=== PATIENT | male | born 1985 | race Hispanic/Latino ===

== ENCOUNTER 2016-10-30 12:44 | Emergency (ER) | payer SELFPAY ==
[~2016-10-30] VITALS: Ht 157.5 cm; Wt 2.2 kg
[~2016-10-30 12:44] MED LIST: PROM25TA14 PO
[2016-10-30 12:46] VITALS: BP 136/84; PULSE 88; RESP 16; O2SAT 99
--- NOTE | 2016-10-30 13:18 | ED.REPORT ---
HPI-General Illness Date of Service October 30, 2016 ED Provider: Rajinder Shahid MD Pt is a 30 y.o. male who presents to the ED c/o weakness onset 10 days ago. Pt reports associated SOB and lightheadedness when he stands up quickly. He reports mild nonproductive cough, denies fever, and congestion. He denies a hx of asthma and recent sick contacts. He states that he is overall very healthy and takes no medications. Nursing Notes Stated Complaint: SOB/DIZZY Chief Complaint: General Complaint Nursing Notes Reviewed: Yes Allergies: Coded Allergies: No Known Allergies (Unverified , 10/30/16) Scheduled PRN Promethazine (Promethazine) 25 Mg Tablet 25 MG PO TID PRN PRN Headache General Time Seen by MD: 13:16 Chief Complaint Weakness Hx Obtained From: Patient Arrived By: Walk-in Sudden in Onset?: Yes Onset Occurred: More than a week ago... Symptom Duration: Since onset Severity: Current: No pain currently Recent Healthcare: No recent doctor visit, No recent hospitalization Similar Sx Previous: No Past Medical History Past Medical History None Past Surgical History None Family History Denies family history of depression. Smoking History Former Smoker Social History Alcohol Use: Denies alcohol use Drug Use: Denies drug use Review of Systems Full Review of Systems Constitutional: Reports: Weakness - generalized, Denies: Fever Ears / Nose / Throat: Denies: Nasal congestion Respiratory: Reports: Shortness of breath, Denies: Non-productive cough Neurologic: Reports: Lightheaded Physical Exam Vital Signs Vital Signs Date Time Temp Pulse Resp B/P Pulse Ox O2 Delivery O2 Flow Rate FiO2 10/30/16 14:52 36.8 81 18 132/86 99 Room Air 10/30/16 12:46 37.0 88 16 136/84 99 Room Air Initial VS: Reviewed Abdomen / GI: No distention Extremities: Vascular intact, Neuro intact Skin: Warm, Dry, No cyanosis Neurologic: Alert, Oriented, Nonfocal Psychiatric: Mood/affect normal, Behavior normal, Normal thought content General/Constitutional: Awake, Alert, No acute distress, Well appearing, Well developed, Well hydrated, Well nourished, Not toxic appearing Head / Eyes: Atraumatic, Normocephalic, PERRL, EOMI Conjunctiva / Sclera: Positive: Injected left, Injected right ENT: Atraumatic, Airway patent Mouth: Positive: Mucous membranes dry Respiratory / Chest: Atraumatic, No respiratory distress Wheezing / Retractions: Positive: Wheezing expiratory (Scattered) Interpretation & Diagnostics X-Ray Chest Interpretation Chest Xray Interpretation: IMPRESSION: No acute process. Dictated by: Dana Brooks M.D. on 10/30/2016 at 13:57 Approved by: Dana Brooks M.D. on 10/30/2016 at 13:57 Re-Eval/Medical Decision Med Decision/Clinical Course Pt is a 30 y.o. male who presents to the ED c/o weakness onset 10 days ago. Pt reports associated SOB and lightheadedness when he stands up quickly. He reports mild nonproductive cough, denies fever, and congestion. He denies a hx of asthma and recent sick contacts. He states that he is overall very healthy and takes no medications. Here in the emergency department the patient is afebrile stable vital signs and examination as above. He has mild scattered wheezing present. Chest x-ray was obtained and per my interpretation demonstrated no focal consolidations or pneumothorax. Incidental finding of lung nodule was present and he will follow this up with his primary care physician. EKG was obtained and interpreted by myself as documented above. I opted to trial albuterol inhaler with spacer and patient reported significant symptom improvement. At this time there is no evidence of pneumonia, pneumothorax, patient is nontoxic and stable in appearance with normal vital signs. I feel that he is appropriate for outpatient management. Advised to follow up with primary care physician. Provided with albuterol inhaler with spacer to use as needed. Follow-up and return precautions were reviewed in detail and the patient was discharged in good condition. Source of Hx: Old records Re-Evaluation/Progress Note: Pt rechecked. Discussed imaging results and plan for discharge, pt understands and agrees with plan. Counseled Regarding: Diagnosis, Lab results, Need for follow-up, When/why to return to ED Discharge & Departure Primary Impression: Upper respiratory infection URI type: unspecified URI Qualified Code: J06.9 - Acute upper respiratory infection, unspecified Additional Impressions: Lung nodule Wheezing Disposition: Home Discharge Condition All VS Reviewed: Yes Condition: Improved Additional Instructions: Thank you for seeking care at the emergency room. It is difficult for us to make definitive diagnoses in the ED but we believe that you are restricting an upper respiratory infection and wheezing. Our primary goal today in the ED was to evaluate you for any life-threatening conditions. Your evaluation was reassuring. Please use the albuterol inhaler as directed. You have a small pulmonary nodule. Follow-up about this with your regular doctor. You should follow-up with your primary doctor in the next week. You should return to the ED immediately if you develop worsening symptoms, fevers, vomiting, cough, shortness of breath, chest pain, lightheadedness, weakness or any other concerning signs or symptoms. Thank you for letting us partake in your care today. Referrals: [facility] (PCP) [facility] Attestation Portions of this note were transcribed by Scotty Lara. I, Dr. Shahid personally performed the history, physical exam and medical decision-making; I reviewed and confirmed the accuracy of the information in the transcribed note. Signed by: Suyapa Plaza, 10/30/16 and 1402. copies to: [facility] Rajinder Shahid MD October 30, 2016 13:18 SCOTTY LARA October 30, 2016 13:22
[2016-10-30] MEDS ORDERED: Albuterol HFA 60 Puff 8 Gm Inhaler INHALATION PRN (13:25)
--- NOTE | 2016-10-30 13:58 | DRSVH ---
PROCEDURE: X-RAY CHEST, TWO VIEWS ([id number]) INDICATIONS: cough TECHNIQUE: 2 views of the chest were acquired. COMPARISON: None. FINDINGS: Surgical changes and devices: None. Lungs and pleura: No pleural effusions or pneumothorax. Calcified granuloma within the right lower l adrian. Lungs are otherwise clear. Mediastinum: Mediastinal contours are normal. Heart size is normal. Bones and chest wall: No suspicious bony abnormalities. Soft tissues appear unremarkable. IMPRESSION: No acute process. Dictated by: Dana Brooks M.D. on 10/30/2016 at 13:57 Approved by: Dana Brooks M.D. on 10/30/2016 at 13:57
[2016-10-30] MEDS ORDERED: Albuterol HFA 200 Puff Inhaler (Vent Pts Only) INHALATION PRN (14:05)
[2016-10-30 14:52] VITALS: BP 132/86; PULSE 81; RESP 18; O2SAT 99
== END 2016-10-30 14:57 | disposition home or self-care (01) ==
LOC: SED 12:44
DX: J06.9 Acute upper respiratory infection, unspecified (principal); R91.1 Solitary pulmonary nodule; Z87.891 Personal history of nicotine dependence